=== PATIENT | female | born 1940 | race Caucasian/White ===

== ENCOUNTER 2016-06-26 12:59 | Emergency (ER) | payer MEDICARE, OTHER ==
[~2016-06-26] VITALS: Ht 157.5 cm; Wt 86.9 kg
[2016-06-26 14:09] LABS: BLOOD UREA NITROGEN 13 mg/dL (7-18)
[2016-06-26 14:12] LABS: ASPARTATE AMINO TRANSFERASE 15 U/L (15-37)
[2016-06-26 15:26] VITALS: BP 120/60
== END 2016-06-26 15:29 | disposition home or self-care (01) ==
LOC: ED 14:44
DX: J20.8 Acute bronchitis due to other specified organisms (principal); J02.8 Acute pharyngitis due to other specified organisms; I10 Essential (primary) hypertension; K58.9 Irritable bowel syndrome, unspecified
CPT/HCPCS: 36415; 71010; 80053; 85025; 93005